=== PATIENT | male | born 1985 | race Caucasian/White ===

== ENCOUNTER 2017-02-01 14:47 | Emergency (ER) | payer OTHER ==
--- NOTE | ~2017-02-01 | CR181 ---
[facility] A Service of [facility] RADIOLOGY TEXT RESULTS PATIENT: ZURI CHAVEZ LOCATION: CFTX : 83 UNIT #: [id number] AGE: [address]: Мария Helm SEX: M ORDER DR: [id number] [facility] [address] [place], [place] [address] [id number] E MR#: [id number] Acc #: [id number] NAME: ZURI CHAVEZ : 1985 SEX: M STUDY DATE/TIME: 02/01/2017 15:33 UNIT: [facility] ROOM: STUDY DESCRIPTION: CR Lumbar Spine 2 or 3 Views Attending Physician: Мария Helm P.A.-C. Ordering Physician: Мария Helm P.A.-C. Primary Care Physician: No Primary Care Physician MEDICAL IMAGING REPORT This report is preliminary unless electronic signature is present EXAM Lumbar spine 02/01/2017 INDICATIONS Low back pain after possible work related injury today. COMPARISON 01/29/2006 FINDINGS AP and lateral projections of the lumbar segment show good mineralization of both anterior and posterior elements. They are all anatomically normal without indication of fracture, dislocation, or malignant change of a sclerotic or lytic type. There is no congenital defect noted. The sacroiliac joints are normal. IMPRESSION Normal lumbar spine. Dictated by... Gen Cornejo Jr., M.D. THIS IS AN ELECTRONICALLY VERIFIED REPORT Gen Cornejo Jr., M.D. at 02/02/2017 8:26 AM Garrett TD: 02/01/2017 17:54 JOB #: [id number] MEDICAL IMAGING REPORT Page 1 of 1 COPY
[~2017-02-01 14:47] MED LIST: ALEVE PO; AMOXICILLIN PO; AMOXICILLIN500 M1 PO; BACTRIM DS TABL1 TAB PO; BENADRYL PO; CIPRO PO; CLEOCIN PO; DICYCLOMINE HCL20 MG PO; ERYTHROMYCIN250 M1 PO; FLAGYL PO; IBUPROFEN PO; KETOPROFEN PO; LORTAB 5/500 TA1 TA1 PO; LOTRIMIN30 GM TOP; NO MEDICATIONS; ORUDIS75 M1 DOB; ORUDIS75 M1 PO; PEN-VEE K PO; PHENERGAN25 MG PO; PREDNISONE PO; TAGAMET PO; TYLENOL325 M1 PO; VICODIN 5/1 TAB 5/50 PO; VICODIN 5/500 T1 TAB PO
== END 2017-02-01 16:15 | disposition home or self-care (01) ==
LOC: CFTX 14:47 → CED 14:47 → CFTX 15:55
DX: M54.5 Low back pain (principal); F90.9 Attention-deficit hyperactivity disorder, unspecified type; F17.210 Nicotine dependence, cigarettes, uncomplicated; Z88.6 Allergy status to analgesic agent
CPT/HCPCS: 72100; 96372; 99283; J1885

== ENCOUNTER 2017-03-13 15:41 | Emergency (ER) | payer OTHER ==
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
== END 2017-03-13 18:39 | disposition home or self-care (01) ==
LOC: CFTX 15:41 → CED 15:41 → CFTX 18:06
DX: S46.012A Strain of muscle(s) and tendon(s) of the rotator cuff of left shoulder, initial encounter (principal); F17.200 Nicotine dependence, unspecified, uncomplicated; Z88.6 Allergy status to analgesic agent; V86.99XA Unspecified occupant of other special all-terrain or other off-road motor vehicle injured in nontraffic accident, initial encounter; Y92.009 Unspecified place in unspecified non-institutional (private) residence as the place of occurrence of the external cause
CPT/HCPCS: 73030; 99283

== ENCOUNTER 2017-06-04 12:39 | Emergency (ER) | payer OTHER ==
[~2017-06-04] VITALS: Ht 160 cm; Wt 58.5 kg
--- NOTE | ~2017-06-04 | US115 ---
[facility] A Service of [facility] RADIOLOGY TEXT RESULTS PATIENT: ZURI CHAVEZ LOCATION: CFTX : 83 UNIT #: [id number] AGE: [address]: Grupo Field MD SEX: M ORDER DR: [id number] [facility] [address]. [place], [place] [address] [id number] E MR#: [id number] Acc #: [id number] NAME: ZURI CHAVEZ : 1985 SEX: M STUDY DATE/TIME: 06/04/2017 14:44 UNIT: CFTX ROOM: STUDY DESCRIPTION: US Scrotum and Contents Attending Physician: Grupo Field M.D. Ordering Physician: Ed Edi Hunter M.D. Primary Care Physician: No Primary Care Physician MEDICAL IMAGING REPORT This report is preliminary unless electronic signature is present EXAM Scrotal ultrasound with Doppler imaging. Date 06/04/2017. HISTORY Dysuria and bilateral testicular pain for 1 week. COMPARISON None. FINDINGS The right testicle measures 3.6 x 2.2 x 4.3 cm. The left testicle measures 3.2 x 1.9 x 4.3 cm. Both testicles demonstrate normal homogeneous echotexture. No testicular mass lesion is identified. Normal color and spectral Doppler flow was documented each testicle. Left epididymal head cyst or spermatocele measures about 3 mm. Bilateral scrotal varicoceles are present. No mik scrotal hydrocele is seen on either side. IMPRESSION 1. Small bilateral scrotal varicoceles. 2. 3 mm left epididymal head cyst or spermatocele. 3. Normal sonographic appearance of the testicles. Normal flow was documented to each testicle. Dictated by... Vicki Matamoros M.D. THIS IS AN ELECTRONICALLY VERIFIED REPORT Vicki Matamoros M.D. at 06/06/2017 9:51 AM LLH/gz [facility] A Service [facility] RADIOLOGY TEXT RESULTS PATIENT: ZURI CHAVEZ LOCATION: [place] : 83 UNIT #: [id number] AGE: [address]: Grupo Field MD SEX: M ORDER DR: TD: 06/05/2017 12:17 JOB #: [id number] MEDICAL IMAGING REPORT Page 1 of 1 COPY
[2017-06-04 13:26] LABS: URINE SOURCE CLEAN CATCH
[2017-06-04 13:31] LABS: URINE APPEARANCE CLEAR; URINE BILIRUBIN NEG (NEG); URINE BLOOD NEG (NEG); URINE COLOR YELLOW; URINE GLUCOSE NEG (NEG); URINE KETONE NEG (NEG); URINE LEUKOCYTE ESTERASE NEG (NEG); URINE NITRATE NEG (NEG); URINE PROTEIN NEG (NEG); URINE SPECIFIC GRAVITY 1.021 (1.003-1.035); URINE UROBILINOGEN 0.2 MG/DL (NEG)
[2017-06-04 13:42] LABS: CULTURE INDICATED? NO
[2017-06-06 20:43] LABS: CHLAMYDIA TRACH Not Detected (Not Detected); N GONOR Not Detected (Not Detected)
== END 2017-06-04 15:25 | disposition home or self-care (01) ==
LOC: CED 12:39 → CFTX 12:39
PROVIDERS: Nurse Practitioner
DX: I86.1 Scrotal varices (principal); F17.210 Nicotine dependence, cigarettes, uncomplicated; F90.9 Attention-deficit hyperactivity disorder, unspecified type; Z88.5 Allergy status to narcotic agent
CPT/HCPCS: 76870; 81003; 87491; 87591; 93976; 99284